=== PATIENT | male | born 2000 | race Two or more races ===

== ENCOUNTER 2023-10-17 14:28 | Emergency (ER) | payer OTHER ==
[2023-10-17] MEDS ORDERED: Ketorolac Tromethamine 30 MG (1 mL) VIAL ONE (15:27)
== END 2023-10-17 16:16 | disposition home or self-care (01) ==
LOC: ERS 14:28
DX: S83.92XA Sprain of unspecified site of left knee, initial encounter (principal); F17.290 Nicotine dependence, other tobacco product, uncomplicated; X50.1XXA Overexertion from prolonged static or awkward postures, initial encounter
CPT/HCPCS: 96372; J1885